=== PATIENT | female | born 1975 | race Native Hawaiian/Other Pacific Islander ===

== ENCOUNTER 2020-08-02 09:43 | Emergency (ER) | payer OTHER ==
[~2020-08-02] VITALS: Ht 167.6 cm; Wt 84.4 kg
[2020-08-02 09:53] VITALS: TEMP 97.3
[2020-08-02] MEDS ORDERED: CIPRO500 MG PO (09:56)
[2020-08-02 10:49] LABS: PLATELET COUNT 167 K/uL (152-353)
[2020-08-02 10:57] LABS: POTASSIUM 4.2 mmol/L (3.6-5.2); SODIUM 140 mmol/L (136-145)
[2020-08-02 11:51] VITALS: BP 115/75
== END 2020-08-02 11:54 | disposition home or self-care (01) ==
LOC: ED 09:43
PROVIDERS: Family Medicine
DX: R07.89 Other chest pain (principal); N39.0 Urinary tract infection, site not specified
CPT/HCPCS: 80053; 84484; 85027; 93005; 99284